=== PATIENT | female | born 1930 | race Caucasian/White ===

== ENCOUNTER 2019-01-16 16:19 | Inpatient (IN) | payer MEDICARE ==
[~2019-01-16] VITALS: Ht 144.8 cm; Wt 75.9 kg
[~2019-01-16 16:19] MED LIST: AMIO200T54 PO; ASPI-611 PO; CHOL2000 PO; DULO-31 PO; FISH1CAP17 PO; FURO-150 PO; GABA-532 PO; HYDR12.5 PO; LEVO25TA7 PO; OXYC20TA55 PO; PER10325T PO; PRED5TAB PO
[2019-01-16] MEDS ORDERED: normal saline 1000ML IV soln IVB ONE (16:55)
[2019-01-16] MEDS ORDERED: ondansetron/PF 4mg/2ml inj IV ONE (16:55)
[2019-01-16] MEDS: morphine 4 MG/ML inj SYRINge IV PRN ×2 (17:29→19:08)
[2019-01-16 17:42] LABS: BASOPHILS # (AUTO) 0.1 X10'3 (0-0.2); BASOPHILS % (AUTO) 0.9 % (0-1); EOSINOPHILS % (AUTO) 0.1 % (0-6); HEMATOCRIT 35.2 % (35.0-45.0); HEMOGLOBIN 11.8 g/dl (12.0-16.0); LYMPHOCYTES # (AUTO) 1.1 X10'3 (1.1-4.8); LYMPHOCYTES % (AUTO) 18.6 % (21-51); MEAN CORPUSCULAR HEMOGLOBIN 31.5 PG (27.0-31.0); MEAN CORPUSCULAR HGB CONC 33.4 g/dL (33.0-36.5); MEAN CORPUSCULAR VOLUME 94.1 FL (78-98); MONOCYTES # (AUTO) 0.6 X10'3 (0-0.9); MONOCYTES % (AUTO) 10.2 % (2-12); NEUTROPHILS % (AUTO) 70.2 % (42-75); PLATELET COUNT 203 X10'3 (140-440); RED BLOOD COUNT 3.74 X10'6 (4.20-5.60); RED CELL DISTRIBUTION WIDTH 14.4 % (11.5-14.5); WHITE BLOOD COUNT 5.8 X10'3 (4.5-11.0)
--- NOTE | 2019-01-16 17:42 | NUR ---
PT HAD A NORMAL SIZED BM THAT WAS YELLOW COLORED AND SOFT FORMED WITH NO OBVIOUS BLOOD SEEN.
[2019-01-16 17:50] LABS: ALANINE AMINOTRANSFERASE 24 U/L (12-78); ALBUMIN 2.9 G/DL (3.4-5.0); ALBUMIN/GLOBULIN RATIO 0.8 (1.1-1.5); ALKALINE PHOSPHATASE 98 IU/L (46-116); ANION GAP 6 (8-16); ASPARTATE AMINO TRANSFERASE 59 U/L (10-37); BILIRUBIN,TOTAL 0.3 MG/DL (0.1-1.0); BLOOD UREA NITROGEN 24 MG/DL (7-18); BUN/CREATININE RATIO 18.6 (6.6-38.0); CALCIUM 8.3 MG/DL (8.5-10.1); CHLORIDE 105 MMOL/L (99-107); CREATININE 1.29 MG/DL (0.40-0.90); GLUCOSE 102 MG/DL (70-104); LIPASE 54 U/L (73-393); POTASSIUM 3.7 MMOL/L (3.5-5.1); SODIUM 147 MMOL/L (135-145); TOTAL CARBON DIOXIDE 35.6 MMOL/L (24-32); TOTAL PROTEIN 6.6 G/DL (6.4-8.2); eGFR 39 ML/MIN
--- NOTE | 2019-01-16 18:40 | NUR ---
Verbal order received from Dr. Cifuentes to dc IVF bolus at this time.
[2019-01-16 19:06] LABS: CLARITY,URINE CLEAR (Clear); COLOR,URINE YELLOW (Yellow); GLUCOSE, URINE NEGATIVE (Neg); KETONES,URINE NEGATIVE (Neg); LEUKOCYTE ESTERASE ,URINE NEGATIVE (Neg); NITRITES, URINE NEGATIVE (Neg); OCCULT BLOOD,URINE SMALL (Neg); PROTEIN,URINE NEGATIVE (Neg); UROBILINOGEN,URINE 0.2 E.U/dL (0.2-1.0)
[2019-01-16 19:09] LABS: UA COLLECTION TYPE STRAIGHT CATH
[2019-01-16 19:13] LABS: BACTERIA,URINE NONE SEEN /HPF (Neg); MUCUS STRANDS NONE SEEN /LPF (Neg); SQUAMOUS EPITHELIAL CELL,UR FEW /LPF (FEW); TRANSITIONAL EPI CELLS,URINE FEW /HPF; WBC,URINE 0-4 /HPF (0-4)
[2019-01-16] MEDS ORDERED: OXYC10TA86 PO (19:34)
[2019-01-16 19:51] LABS: TROPONIN I < 0.04 NG/ML (0.0-0.05)
[2019-01-16] MEDS ORDERED: acetaminophen 325mg tablet PO PRN (20:10)
[2019-01-16] MEDS ORDERED: magnesium hydroxide 30ml (MOM) UD suspension PO PRN (20:10)
[2019-01-16] MEDS ORDERED: mag hydrox/Alum hydrox/simeth 30ml oral suspension PO PRN (20:10)
[2019-01-16] MEDS ORDERED: ondansetron/PF 4mg/2ml inj IV PRN (20:10)
[2019-01-16 21:00] VITALS: BP 148/60
--- NOTE | 2019-01-16 21:15 | NUR ---
I got a call from the [employer] Consultant regarding patient going in and out of Afib and SR paced after her heart monitor was placed. Per her old records she went in and out of Afib the last visit too. Patient asymptomatic and it is not a fast rate or RVR per the [employer] Consultant. Per the patient she did not take her Amiodarone today so that could be a cause of why she is going in and out of Afib. I alerted her nurse Mary of the rhythm and medication not being taken today.
--- NOTE | 2019-01-16 22:34 | NUR ---
telemarketing fundraiser notified me that patient HR in 130s. checked on patient. she is sleeping. called tele again - stated that she was now in 110s.
[2019-01-16] MEDS ORDERED: amiodarone 100mg tablet PO ONE (22:40)
--- NOTE | 2019-01-16 22:45 | NUR ---
called MD to notify him of irregular HR. Now order for amiodarone.
[2019-01-16] MEDS: dextrose 5%-1/2 normal saline 1,000 ML IV SCH (23:00)
[2019-01-16] MEDS: morphine 2 MG/ML inj. syringe IV PRN (23:16)
[2019-01-17] MEDS: oxyCODONE/APAP 10/325mg tablet PO PRN ×4 (03:12→23:25)
--- NOTE | 2019-01-17 03:44 | NUR ---
reviewed and agree with SRN assessment findings.
[2019-01-17] MEDS: morphine 2 MG/ML inj. syringe IV PRN ×3 (04:24→14:10)
[2019-01-17] MEDS: ceFAZolin 1GM/D5W- ADD-VANTAGE 50 ML IV SCH ×3 (05:58→23:24)
[2019-01-17 06:00] VITALS: BP 129/60
--- NOTE | 2019-01-17 06:16 | NUR ---
received report from rishi colorado rn
--- NOTE | 2019-01-17 06:27 | NUR ---
Problems reprioritized. Patient report given, questions answered & plan of care reviewed with JULIET Cruz.
[2019-01-17 06:32] LABS: BASOPHILS # (AUTO) 0.1 X10'3 (0-0.2); EOSINOPHILS % (AUTO) 0.6 % (0-6); HEMATOCRIT 32.2 % (35.0-45.0); HEMOGLOBIN 10.8 g/dl (12.0-16.0); LYMPHOCYTES # (AUTO) 0.8 X10'3 (1.1-4.8); LYMPHOCYTES % (AUTO) 14.9 % (21-51); MEAN CORPUSCULAR HEMOGLOBIN 31.7 PG (27.0-31.0); MEAN CORPUSCULAR HGB CONC 33.7 g/dL (33.0-36.5); MEAN PLATELET VOLUME 7.3 FL (7.4-10.4); MONOCYTES # (AUTO) 0.9 X10'3 (0-0.9); MONOCYTES % (AUTO) 15.9 % (2-12); NEUTROPHILS # (AUTO) 3.8 X10'3 (1.8-7.7); NEUTROPHILS % (AUTO) 67.6 % (42-75); PLATELET COUNT 174 X10'3 (140-440); RED BLOOD COUNT 3.43 X10'6 (4.20-5.60); RED CELL DISTRIBUTION WIDTH 14.1 % (11.5-14.5); WHITE BLOOD COUNT 5.6 X10'3 (4.5-11.0)
[2019-01-17 06:38] LABS: ALBUMIN 2.4 G/DL (3.4-5.0); ANION GAP 4 (8-16); BLOOD UREA NITROGEN 18 MG/DL (7-18); BUN/CREATININE RATIO 16.1 (6.6-38.0); CALCIUM 7.6 MG/DL (8.5-10.1); CHLORIDE 107 MMOL/L (99-107); CREATININE 1.12 MG/DL (0.40-0.90); GLUCOSE 119 MG/DL (70-104); POTASSIUM 3.5 MMOL/L (3.5-5.1); SODIUM 148 MMOL/L (135-145); TOTAL CARBON DIOXIDE 37.4 MMOL/L (24-32); eGFR 46 ML/MIN
[2019-01-17] MEDS ORDERED: gabapentin 300mg capsule PO SCH (08:00)
[2019-01-17] MEDS ORDERED: enoxaparin 40mg/0.4ml syringe SUBCUT SCH (08:00)
--- NOTE | 2019-01-17 08:00 | NUR ---
unable to obtain pts ortho static vs at this time
[2019-01-17] MEDS: oxyCODONE SR 10mg (sust. release) tab PO SCH ×2 (08:27→19:41)
[2019-01-17] MEDS: levoTHYROXINE 25mcg tablet PO SCH (08:28)
[2019-01-17] MEDS: vitamin D (cholecalciferol) 1,000 unit tablet PO SCH (08:29)
[2019-01-17] MEDS: duloxetine 30mg CAPSULE.DR PO SCH (08:30)
[2019-01-17] MEDS: amiodarone 100mg tablet PO SCH (08:30)
[2019-01-17] MEDS: furosemide 20MG tablet PO SCH (08:30)
[2019-01-17] MEDS: dextrose 5%-1/2 normal saline 1,000 ML IV SCH ×3 (08:41→19:33)
[2019-01-17 10:00] VITALS: BP 150/58
[2019-01-17] MEDS ORDERED: LIDOcaine Viscous 15ml cup MM PRN (16:20)
[2019-01-17 18:00] VITALS: BP 147/56
--- NOTE | 2019-01-17 18:10 | NUR ---
Received report from Nancy CHUNG. assumed care of patient.
--- NOTE | 2019-01-17 18:13 | NUR ---
gave report to joleen bustamante
[2019-01-17] MEDS: gabapentin 300mg capsule PO SCH (19:41)
[2019-01-17] MEDS: lactobacillus rhamnosus 10,000 MMU CELLS/CAPSULE PO SCH (19:41)
[2019-01-17 20:00] VITALS: BP 149/57
[2019-01-17 21:48] VITALS: BP 149/57
--- NOTE | 2019-01-18 05:22 | NUR ---
attempted to get orthostatic vitals on patient. unsuccessful at this time.
[2019-01-18] MEDS: oxyCODONE/APAP 10/325mg tablet PO PRN ×3 (05:30→21:51)
[2019-01-18] MEDS: dextrose 5%-1/2 normal saline 1,000 ML IV SCH ×2 (05:34→19:16)
[2019-01-18 06:00] VITALS: BP 161/66
--- NOTE | 2019-01-18 06:05 | NUR ---
Gave report to Nancy CHUNG.
--- NOTE | 2019-01-18 06:11 | NUR ---
received report from joleen bustamante
[2019-01-18 06:12] LABS: BASOPHILS % (AUTO) 0.7 % (0-1); EOSINOPHILS # (AUTO) 0.2 X10'3 (0-0.9); EOSINOPHILS % (AUTO) 3.4 % (0-6); HEMATOCRIT 33.1 % (35.0-45.0); HEMOGLOBIN 10.8 g/dl (12.0-16.0); LYMPHOCYTES # (AUTO) 0.8 X10'3 (1.1-4.8); LYMPHOCYTES % (AUTO) 13.4 % (21-51); MEAN CORPUSCULAR HEMOGLOBIN 31.3 PG (27.0-31.0); MEAN CORPUSCULAR HGB CONC 32.7 g/dL (33.0-36.5); MEAN CORPUSCULAR VOLUME 95.9 FL (78-98); MEAN PLATELET VOLUME 7.7 FL (7.4-10.4); MONOCYTES # (AUTO) 0.8 X10'3 (0-0.9); MONOCYTES % (AUTO) 14.3 % (2-12); NEUTROPHILS % (AUTO) 68.2 % (42-75); PLATELET COUNT 178 X10'3 (140-440); RED BLOOD COUNT 3.45 X10'6 (4.20-5.60); RED CELL DISTRIBUTION WIDTH 14.4 % (11.5-14.5); WHITE BLOOD COUNT 5.8 X10'3 (4.5-11.0)
[2019-01-18 06:23] LABS: ALBUMIN 2.5 G/DL (3.4-5.0); ANION GAP 3 (8-16); BLOOD UREA NITROGEN 11 MG/DL (7-18); BUN/CREATININE RATIO 10.5 (6.6-38.0); CALCIUM 7.5 MG/DL (8.5-10.1); CHLORIDE 105 MMOL/L (99-107); CREATININE 1.05 MG/DL (0.40-0.90); GLUCOSE 103 MG/DL (70-104); POTASSIUM 3.1 MMOL/L (3.5-5.1); SODIUM 146 MMOL/L (135-145); TOTAL CARBON DIOXIDE 37.9 MMOL/L (24-32); eGFR 49 ML/MIN
--- NOTE | 2019-01-18 06:34 | NUR ---
David received from JULIET Chopra.
[2019-01-18] MEDS: lactobacillus rhamnosus 10,000 MMU CELLS/CAPSULE PO SCH ×2 (07:40→19:16)
[2019-01-18] MEDS: duloxetine 30mg CAPSULE.DR PO SCH (07:40)
[2019-01-18] MEDS: amiodarone 100mg tablet PO SCH (07:40)
[2019-01-18] MEDS: furosemide 20MG tablet PO SCH (07:40)
[2019-01-18] MEDS: ceFAZolin 1GM/D5W- ADD-VANTAGE 50 ML IV SCH ×3 (07:40→23:56)
[2019-01-18] MEDS: gabapentin 300mg capsule PO SCH ×2 (07:40→19:17)
[2019-01-18] MEDS: vitamin D (cholecalciferol) 1,000 unit tablet PO SCH (07:41)
[2019-01-18] MEDS: levoTHYROXINE 25mcg tablet PO SCH (07:41)
[2019-01-18] MEDS: enoxaparin 30mg/0.3ml syringe SUBCUT SCH (07:42)
[2019-01-18] MEDS: oxyCODONE SR 10mg (sust. release) tab PO SCH ×2 (07:43→19:16)
[2019-01-18 08:00] VITALS: BP_SYST 120; BP_SYST 146; BP_DIAS 58; BP_DIAS 68
[2019-01-18] MEDS ORDERED: potassium Cl 20 mEq SR tablet PO PRN (09:25)
[2019-01-18] MEDS ORDERED: potassium CL 10mEq/100ml bag 100 ML IV PRN ×2 (09:25)
[2019-01-18] MEDS: potassium Cl 20 mEq SR tablet PO PRN ×3 (09:51→19:16)
[2019-01-18 10:00] VITALS: BP 122/70
[2019-01-18] MEDS: morphine 2 MG/ML inj. syringe IV PRN (15:10)
[2019-01-18 18:00] VITALS: BP 148/54
--- NOTE | 2019-01-18 18:00 | NUR ---
Received report from Nancy CHUNG. Assumed care of patient.
--- NOTE | 2019-01-18 18:09 | NUR ---
gave report to joleen bustamante
[2019-01-18 20:00] VITALS: BP_SYST 132; BP_SYST 152; BP_SYST 164; BP_DIAS 103; BP_DIAS 65
[2019-01-18 22:00] VITALS: BP 152/65
--- NOTE | 2019-01-19 00:20 | NUR ---
Pt told nurses aide she was having some chest pain 09/11. I went in to check on her and her oxygen slipped off her face and her 02 sats went to the Low 60's. Her blood pressure was 131/55, and heart rate was running in the 70's. Once we put her oxygen back on her 02 sats went up to 94-96 and patient stated that her chest pain was gone. We ran and EKG and it showed atrial pacemaker. pt is currently paced. Called Dr. Cabrera and he stated it was probably angina and ordered nitroglycerin, and to be given only when she was having chest pain again. Will continue to monitor and communicate any changes with
[2019-01-19] MEDS ORDERED: nitroGLYCERIN 0.4mg SUBLingual tab SL PRN (00:40)
[2019-01-19] MEDS: oxyCODONE/APAP 10/325mg tablet PO PRN ×2 (03:45→09:42)
[2019-01-19] MEDS: dextrose 5%-1/2 normal saline 1,000 ML IV SCH (05:23)
[2019-01-19 05:30] LABS: ALBUMIN 2.6 G/DL (3.4-5.0); ANION GAP 3 (8-16); BLOOD UREA NITROGEN 8 MG/DL (7-18); BUN/CREATININE RATIO 7.8 (6.6-38.0); CALCIUM 7.7 MG/DL (8.5-10.1); CHLORIDE 105 MMOL/L (99-107); CREATININE 1.02 MG/DL (0.40-0.90); GLUCOSE 111 MG/DL (70-104); POTASSIUM 4.1 MMOL/L (3.5-5.1); SODIUM 144 MMOL/L (135-145); TOTAL CARBON DIOXIDE 36.4 MMOL/L (24-32); eGFR 51 ML/MIN
[2019-01-19 05:32] LABS: BASOPHILS % (AUTO) 0.5 % (0-1); EOSINOPHILS # (AUTO) 0.2 X10'3 (0-0.9); HEMATOCRIT 33.7 % (35.0-45.0); HEMOGLOBIN 11.2 g/dl (12.0-16.0); LYMPHOCYTES # (AUTO) 0.7 X10'3 (1.1-4.8); LYMPHOCYTES % (AUTO) 11.1 % (21-51); MEAN CORPUSCULAR HEMOGLOBIN 31.5 PG (27.0-31.0); MEAN CORPUSCULAR HGB CONC 33.1 g/dL (33.0-36.5); MEAN CORPUSCULAR VOLUME 95.1 FL (78-98); MEAN PLATELET VOLUME 7.4 FL (7.4-10.4); MONOCYTES # (AUTO) 0.7 X10'3 (0-0.9); MONOCYTES % (AUTO) 11.7 % (2-12); NEUTROPHILS # (AUTO) 4.5 X10'3 (1.8-7.7); NEUTROPHILS % (AUTO) 73.7 % (42-75); PLATELET COUNT 203 X10'3 (140-440); RED BLOOD COUNT 3.54 X10'6 (4.20-5.60); RED CELL DISTRIBUTION WIDTH 14.3 % (11.5-14.5); WHITE BLOOD COUNT 6.1 X10'3 (4.5-11.0)
[2019-01-19 06:00] VITALS: BP 150/60
--- NOTE | 2019-01-19 06:05 | NUR ---
Patient in room ORTHO 4009. I have received report from BRITTANY CHUNG and had the opportunity to ask questions and assume patient care.
--- NOTE | 2019-01-19 06:05 | NUR ---
Gave report to Lee CHUNG.
[2019-01-19] MEDS: morphine 2 MG/ML inj. syringe IV PRN (06:54)
[2019-01-19 08:00] VITALS: BP_SYST 142; BP_SYST 143; BP_SYST 148; BP_DIAS 63; BP_DIAS 69; BP_DIAS 86
[2019-01-19] MEDS ORDERED: K and/or MAG REPLACEMENT MC SCH (08:00)
[2019-01-19] MEDS: duloxetine 30mg CAPSULE.DR PO SCH (09:07)
[2019-01-19] MEDS: vitamin D (cholecalciferol) 1,000 unit tablet PO SCH (09:07)
[2019-01-19] MEDS: lactobacillus rhamnosus 10,000 MMU CELLS/CAPSULE PO SCH (09:07)
[2019-01-19] MEDS: amiodarone 100mg tablet PO SCH (09:07)
[2019-01-19] MEDS: furosemide 20MG tablet PO SCH (09:07)
[2019-01-19] MEDS: levoTHYROXINE 25mcg tablet PO SCH (09:07)
[2019-01-19] MEDS: gabapentin 300mg capsule PO SCH (09:07)
[2019-01-19] MEDS: oxyCODONE SR 10mg (sust. release) tab PO SCH (09:07)
[2019-01-19] MEDS: ceFAZolin 1GM/D5W- ADD-VANTAGE 50 ML IV SCH (09:08)
[2019-01-19] MEDS: enoxaparin 30mg/0.3ml syringe SUBCUT SCH (09:08)
[2019-01-19 10:00] VITALS: BP 146/65
== END 2019-01-19 13:15 | DRG 603 ==
LOC: ER 16:20 → OBSVTOIN 21:21 → ORTHO 4S 21:21
PROVIDERS: ADMIT Internal Medicine; ATTEND Family Medicine
DX: L03.116 Cellulitis of left lower limb (principal); K62.5 Hemorrhage of anus and rectum; J96.11 Chronic respiratory failure with hypoxia; L03.115 Cellulitis of right lower limb; N18.3 Chronic kidney disease, stage 3 (moderate); G89.4 Chronic pain syndrome; E03.9 Hypothyroidism, unspecified; Z66 Do not resuscitate; G62.9 Polyneuropathy, unspecified; M54.9 Dorsalgia, unspecified; R19.7 Diarrhea, unspecified; I48.0 Paroxysmal atrial fibrillation; I50.9 Heart failure, unspecified; J44.9 Chronic obstructive pulmonary disease, unspecified; K64.4 Residual hemorrhoidal skin tags; Z79.891 Long term (current) use of opiate analgesic; Z87.891 Personal history of nicotine dependence; Z88.6 Allergy status to analgesic agent; Z90.710 Acquired absence of both cervix and uterus; Z82.49 Family history of ischemic heart disease and other diseases of the circulatory system; Z90.49 Acquired absence of other specified parts of digestive tract; E87.6 Hypokalemia
CPT/HCPCS: 36415; 71045; 80048; 80053; 81001; 83690; 83880; 84484; 85025; 87081; 93005; 96361; 96372; 96374; 96375; 97110; 97116; 97162; 97530; 99285; G0378; J0690; J1650; J2270; J2405